=== PATIENT | male | born 1965 | race Caucasian/White ===

== ENCOUNTER 2021-08-15 08:39 | Outpatient (CLI) | payer OTHER, SELFPAY ==
--- NOTE | 2021-08-15 11:17 | W.ANESCHARGE ---
Anesthesia Charges Start Date/Time Anesthesia Start Date: 08/15/21 Anesthesia Start Time: 10:25 Stop Date/Time Anesthesia Stop Date: 08/15/21 Anesthesia Stop Time: 11:17 Summary Emergency: No
--- NOTE | 2021-08-15 11:24 | W.ANESCHARGE ---
Anesthesia Charges Start Date/Time Anesthesia Start Date: 08/15/21 Anesthesia Start Time: 10:25 Stop Date/Time Anesthesia Stop Date: 08/15/21 Anesthesia Stop Time: 11:17 Summary Emergency: No
--- NOTE | 2021-08-15 12:13 | W.ANESCHARGE ---
Anesthesia Charges Start Date/Time Anesthesia Start Date: 08/15/21 Anesthesia Start Time: 10:25 Stop Date/Time Anesthesia Stop Date: 08/15/21 Anesthesia Stop Time: 11:17 Summary Emergency: No
== END 2021-08-15 08:40 | disposition home or self-care (01) ==
PROVIDERS: PCP Physician Assistant Medical; Visit Provider Surgery
DX: Z12.11 Encounter for screening for malignant neoplasm of colon (principal); K63.5 Polyp of colon; K64.9 Unspecified hemorrhoids; Z86.010 Personal history of colon polyps; Z98.0 Intestinal bypass and anastomosis status; K22.89 Other specified disease of esophagus; K44.9 Diaphragmatic hernia without obstruction or gangrene; K22.2 Esophageal obstruction; R13.10 Dysphagia, unspecified
CPT/HCPCS: 00813; 43249; 45385; 88305; 88312

== ENCOUNTER 2022-06-13 09:25 | Outpatient (CLI) | payer OTHER, SELFPAY | END 2022-06-13 09:26 | disposition home or self-care (01) | PROVIDERS: PCP Physician Assistant Medical; Visit Provider Physician Assistant Medical | DX: Z00.00 Encounter for general adult medical examination without abnormal findings (principal); Z13.6 Encounter for screening for cardiovascular disorders; Z12.5 Encounter for screening for malignant neoplasm of prostate | CPT/HCPCS: 80053; 80061; 84153 ==

== ENCOUNTER 2023-03-18 10:40 | Outpatient (CLI) | payer OTHER, SELFPAY | END 2023-03-18 10:41 | disposition home or self-care (01) | PROVIDERS: PCP Physician Assistant Medical; Visit Provider Family Medicine | DX: K50.90 Crohn's disease, unspecified, without complications (principal); R10.9 Unspecified abdominal pain | CPT/HCPCS: 80053; 83690; 87086 ==

== ENCOUNTER 2023-03-26 10:36 | Outpatient (CLI) | payer OTHER, SELFPAY ==
--- NOTE | 2023-03-26 11:00 | CRLHL7_ITS ---
For Patients: As a result of the Century Cures Act, medical imaging exams and procedure reports are released immediately into your electronic medical record. You may view this report before your referring provider. If you have questions, please contact your health care provider. Indication: ABD PAIN, CROHNS Technique: CT Abdomen/Pelvis W/ 101CC IOSOVUE 370 Please note that all CT scans at this facility use dose modulation, iterative reconstruction, and/or weight-based dosing when appropriate to reduce radiation dose to as low as reasonably achievable. Comparison: 07/31/2021 Findings: Mild atelectasis/scarring is present within both lung bases. There is no pleural effusion. Mild hepatic steatosis. No intrahepatic duct dilation or focal mass. Gallbladder is absent. Similar spleen. Adrenal glands are normal. Simple cyst lower pole left kidney. Simple cysts right kidney also present, measuring up to 2.3 cm. Pancreas normal. Incidental splenules. No hiatal hernia. Unchanged appearance of the celiac artery. Atherosclerotic change. No enlarged lymph nodes. The bladder is incompletely distended. Postop changes of partial colectomy. No bowel obstruction or inflammatory change. The appendix is unremarkable. The terminal ileum is within normal limits. No fracture. Impression: Postop changes of partial colectomy. No bowel obstruction or inflammatory change. Normal appearance of the small bowel. No adenopathy or abscess. Resolution of previously noted postop seroma. Please note that all CT scans at this facility use dose modulation, iterative reconstruction, and/or weight-based dosing when appropriate to reduce radiation dose to as low as reasonably achievable. Dictated by Bhupendra Silver MD @ 03/27/2023 1:35:46 PM (Electronically Signed)
== END 2023-03-26 10:37 | disposition home or self-care (01) ==
LOC: CT 10:37
PROVIDERS: PCP Physician Assistant Medical; Visit Provider Family Medicine
DX: K50.90 Crohn's disease, unspecified, without complications (principal); R10.9 Unspecified abdominal pain
CPT/HCPCS: 74177; Q9967

== ENCOUNTER 2023-08-03 09:06 | Outpatient (CLI) | payer OTHER, SELFPAY | END 2023-08-03 09:07 | disposition home or self-care (01) | PROVIDERS: PCP Physician Assistant Medical; Visit Provider Physician Assistant Medical | DX: Z00.00 Encounter for general adult medical examination without abnormal findings (principal); Z13.6 Encounter for screening for cardiovascular disorders; Z13.29 Encounter for screening for other suspected endocrine disorder; Z12.5 Encounter for screening for malignant neoplasm of prostate | CPT/HCPCS: 80053; 80061; 84443; G0103 ==

== ENCOUNTER 2023-09-28 13:21 | Outpatient (CLI) | payer OTHER, SELFPAY | END 2023-09-28 13:22 | disposition home or self-care (01) | PROVIDERS: PCP Physician Assistant Medical; Visit Provider Physician Assistant | DX: M25.532 Pain in left wrist (principal); M25.572 Pain in left ankle and joints of left foot | CPT/HCPCS: 86618; 87468; 87469; 87484; 87798 ==

== ENCOUNTER 2024-01-19 12:47 | Outpatient (CLI) | payer OTHER, SELFPAY ==
--- NOTE | 2024-01-19 13:00 | CRLHL7_ITS ---
For Patients: As a result of the Cures Act, medical imaging exams and procedure reports are released immediately into your electronic medical record. You may view this report before your referring provider. If you have questions, please contact your health care provider. INDICATION: Tuberculosis quant positive. Crohn`s on biologic therapy TECHNIQUE: Chest radiograph 2 views COMPARISON: None FINDINGS: Mediastinum: The mediastinum is normal in appearance. The heart silhouette is normal in size and morphology. Lung: Both lungs are unremarkable in appearance. No sign of pleural effusion seen. No pneumothorax is identified. Bone and Soft tissue: Unremarkable for age. IMPRESSION: 1. No acute cardiopulmonary disease is seen. Dictated by: Des Chase MD @ 01/19/2024 13:45:16 (Electronically Signed)
== END 2024-01-19 12:48 | disposition home or self-care (01) ==
PROVIDERS: PCP Physician Assistant Medical; Visit Provider Internal Medicine Gastroenterology
DX: K50.00 Crohn's disease of small intestine without complications (principal)
CPT/HCPCS: 71046

== ENCOUNTER 2024-08-25 09:57 | Outpatient (CLI) | payer OTHER, SELFPAY | END 2024-08-25 09:58 | disposition home or self-care (01) | LOC: NFLDREF 08-29 17:42 | PROVIDERS: PCP Physician Assistant Medical; Referring Provider Physician Assistant Medical; Visit Provider Physician Assistant Medical | DX: K21.9 Gastro-esophageal reflux disease without esophagitis (principal); N52.9 Male erectile dysfunction, unspecified; Z13.6 Encounter for screening for cardiovascular disorders; Z12.5 Encounter for screening for malignant neoplasm of prostate; Z13.29 Encounter for screening for other suspected endocrine disorder; Z01.818 Encounter for other preprocedural examination | CPT/HCPCS: 80053; 80061; 84439; 84443; G0103 ==

== ENCOUNTER 2025-01-05 14:23 | Inpatient (IN) | payer OTHER, SELFPAY ==
[2025-01-05] VITALS (33 sets, daily range): BP systolic 138–172; BP diastolic 76–116; PULSE 51–65; RESP 6–28; TEMP 36.1–36.8; O2SAT 95–99; BMI 31.0; BMI 30.7; BMI 30.8
--- NOTE | 2025-01-05 14:24 | ED_ITS ---
HPI - General Adult General Date Seen: 01/05/25 Chief complaint: Altered Mental Status Stated complaint: confusion, hard time finishing a sentence Time Seen by Provider: 01/05/25 14:24 History of Present Illness HPI narrative: 59 yo M no for with a past medical history of Crohn's disease (apparently diagnosed 3 or 4 years ago) inflammatory arthritis (follows with Dr. 3rd valdes, rheumatology through [facility]). Per notes from October 2023 he had a good response after a treatment with prednisone. He had been on combination of have so less/infliximab. He then tried cetirizine. Per rheumatology notes he was going to be treated long-term with methotrexate 15 mg weekly, folic acid. Prednisone PRN for flares. He also has a history of anxiety, insomnia, GERD lymphocytic esophagitis. Current med list includes methotrexate 2.5 mg daily, omeprazole 40 mg daily, risankizumab, tadalafil, ambien, alprazolam. However, his says he is currently on prednisone and was started back on skyrizi ( took a dose on Thursday, 5 days ago)). History is obtained primarily from the patient's because the patient is confused. She says that after he took his dose of scanned resee on Thursday he did have some GI upset with vomiting, at least 3 episodes and possibly some more vomiting on Thursday. He also had some diarrhea but that is not unusual for him. Beginning on Thursday he seemed to be a little bit off with his mentation but nothing focal. 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 He did have to come home from work early on Thursday because he was having a flare up in his body aches and joint pain. Yesterday he seemed a little bit confused. He was well enough that his left him home alone today and went to work. When she came home he was still home. He apparently had a doctor's appointment today but for got to go. says he is pretty confident did not go because they have an katie that monitors the garage door and it did not open or close at all today.. Patient told his that the doctor did the normal things at the checkup but the patient cannot recall is doctor's name. His feels that he is much more confused than normal and is having a little bit trouble speaking and finishing his sentences. Patient does have a bifrontal headache. Sclerotic nauseous. He says vision is normal. No fever. notes he has had a cough for a few weeks. No new abdominal pain. No bloody diarrhea. We believe urination has been normal. Related Data Home Medications ?Medication ?Instructions ?Recorded ?Confirmed prednisone 10 mg tablet 20 mg PO DAILY 03/29/2412/18 risankizumab-rzaa 360 mg/2.4 mL 360 mg subcut 08/25/24 10/27/24 (150 mg/mL) subcut wearable injector (Bobby) methotrexate sodium 2.5 mg tablet 2.5 mg PO QWEEK 12/1701/05/25 folic acid 1 mg tablet 1 mg PO DAILY 01/05/2501/05 Previous Rx's ?Medication ?Instructions ?Recorded zolpidem 10 mg tablet 10 mg PO QHS PRN insomnia #9 0 tabs 08/02/24 omeprazole 40 mg capsule,delayed 40 mg PO BID #180 cap s 08/25/24 release alprazolam 0.5 mg tablet 0.5 mg PO QDAY PRN anxiety # 30 tabs 10/04/24 tadalafil 10 mg tablet 10 mg PO QDAY PRN sexual act ivity 11/03/24 #6 tabs Allergies Allergy/AdvReac Type Severity Reaction Status Date / Time ciprofloxacin Allergy Severe foggy Verified 01/05/25 15:13 metronidazole Allergy Severe foggy Verified 01/05/25 15:13 [facility] Medical History (Updated 01/05/25 @ 18:47 by Hernán Garza MD) Positive TB test ?R76.11 - Nonspecific reaction to tuberculin skin test without active tuberculosis (ICD-10) 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 ?R76.11 - Nonspecific reaction to tuberculin skin test without active tuberculosis (ICD-10) Polyp of gallbladder ?K82.4 - Cholesterolosis of gallbladder (ICD-10) Diverticulitis of sigmoid colon ?K57.32 - Diverticulitis of large intestine without perforation or abscess without bleeding (ICD-10) Chronic cough ?R05.3 - Chronic cough (ICD-10) Surgical History (Updated 10/27/24 @ 14:26 by Jad Gallego PA-C) History of insertion of dental endosseous implant ?Z97.2 - Presence of dental prosthetic device (complete) (partial) (ICD-10) Stricture of esophagus (05/04/15) ?K22.2 - Esophageal obstruction (ICD-10) History of flexible sigmoidoscopy ?Z98.890 - Other specified postprocedural states (ICD-10) History of endoscopy ?Z98.890 - Other specified postprocedural states (ICD-10) History of colonoscopy (05/04/15) ?Z98.890 - Other specified postprocedural states (ICD-10) History of colectomy ?Z90.49 - Acquired absence of other specified parts of digestive tract (ICD- 10) History of cholecystectomy ?Z90.49 - Acquired absence of other specified parts of digestive tract (ICD- 10) Family History (Updated 07/31/21 @ 09:52 by Amee Woo) Other Crohn's disease Diabetes High blood pressure Social History (Updated 08/03/23 @ 09:31 by Saloni Hernandez ~ [facility]) Narrative: Does not drink alcohol Does not use illicit drugs Former smoker What is your current living situation?: I presently have a place to live Problems where you live: no known problems In the past 12 months, utilities in danger of being shut off: no In past 12 months, lack of transportation kept you from medical appts, meetings, work, or getting things needed for daily living: no In the past 12 mos, have been you worried that your food would run out before you had money to buy more?: never true In the past 12 mos, the food you bought just didn't last and you didn't have money to buy more?: never true Smoking Status: Never smoker Do you use any of these nicotine containing products: None How often do you have a drink containing alcohol: monthly or less AUDIT-C Alcohol total score: 1 Non-prescribed substance use: denies use How often does anyone, including family, friends and others, physically hurt you : never How often does anyone, including family, friends and others, insult or talk down to you: never How often does anyone, including family, friends and others, threaten you with harm: never How often does anyone, including family, friends and others, scream or curse at you: never Exam Narrative: Exam Narrative: Constitutional: Appears well-developed and well-nourished. Alert. Somewhat slow with conversation but very polite. Cooperative. At times seems a little bit confused when getting instructions, for instance has trouble completing the heel-gonzalez test because he is confused, not because of obvious weakness or ataxia. HENT: Head: Atraumatic. No depressed skull fracture, Raccoon Eyes, Sanchez's sign, or hemotympanum. Face normal. TMs normal Nose: Nose normal. Mouth/Throat: Oral mucosa is clear and moist. no trismus. Pharynx normal. Tonsils symmetric. No tonsillar enlargement, erythema, or exudate. Eyes: Conjunctivae normal. EOM normal. Pupils equal, round, and reactive to light. No scleral icterus. Neck: Normal range of motion. Neck supple. No tracheal deviation present. Cardiovascular: Normal rate, regular rhythm. No gallop. No friction rub. No murmur heard. Symmetric radial artery pulses Pulmonary/Chest: Effort normal. No stridor. No respiratory distress. No wheezes. No rales. No rhonchi . No tenderness. Abdominal: Soft. Bowel sounds normal. No distension. No mass. No tenderness. No rebound. No guarding. Musculoskeletal: RUE: Normal range of motion. No tenderness. No deformity LUE: Normal range of motion. No tenderness. No deformity RLE: Normal range of motion. No edema. No tenderness. No deformity LLE: Normal range of motion. No edema. No tenderness. No deformity Neurological: Seems mildly confused and has some trouble following instructions. Very polite and cooperative. Not combative or agitated. Attention normal. Alert and oriented x3 but is a poor historian. When asking what day of the week it is he does give the right answer, but is not confident.. GCS 15. He is not able to recall events of today. He almost seemed to confabulate when his ask him about his doctor's appointment today. Speech somewhat slow but not obviously slurred. No facial droop. Cranial Nerves intact II-XII except I did not formally test gag or visual acu ity. Visual beverly are full to confrontation. Patient and told the nurses that he was having some haziness of the left lower visual field and right upper outer visual field. EOMI. Palate elevates symmetrically and tongue protrudes in the midline. Strength: 5/5 trapezius on the right and left 5/5 deltoid on the right and left 5/5 biceps on the right and left 5/5 triceps on the right and left 5/5 student accounts coordinator on the right and left 5/5 thumb opposition on the right and le ft 5/5 finger abduction on the right and le ft 5/5 hip flexors (L3) on the right and le ft 5/5 quadriceps (L4) on the right and lef t 5/5 tibialis anterior on the right and l eft 5/5 EHL (L5) on the right and left 5/5 gastrocnemius (S1) on the right and left 5/5 hamstring on the right and left Sensation intact to light touch in both upper extremities (C4-T1) Sensation intact to light touch in Both lower extremities (L4-S1). Finger to nose is normal. Has trouble cooperating with heel to gonzalez test because he just does not understand the instructions. NIH stroke scale- 3 Skin: Skin is warm and dry. No rash noted. No pallor. Normal capillary refill. Psychiatric: Normal mood. Mildly anxious. Very cooperative. is attentively is side. Const: Vital Signs, click to edit/add: Vital Signs - 24 hr 01/05/25 14:32 01/05/25 14:35 01/05/25 15:23 Temperature 98.3 F Pulse Rate 65 Pulse Rate [Pulse Oximeter] 59 L 59 L Respiratory Rate 16 16 Blood Pressure 162/83 H Blood Pressure [Le ft Upper Arm] 170/92 H 170/91 H Pulse Oximetry 98 96 98 Oxygen Delivery Me thod Room Air Room Air 01/05/25 15:24 01/05/25 15:30 01/05/25 15:35 Temperature Pulse Rate 63 58 L 56 L Pulse Rate [Pulse Oximeter] Respiratory Rate 14 10 L 28 H Blood Pressure 162/78 H Blood Pressure [Le ft Upper Arm] Pulse Oximetry 98 96 99 Oxygen Delivery Me thod 01/05/25 15:45 01/05/25 15:46 01/05/25 15:47 Temperature Pulse Rate 55 L 56 L 54 L Pulse Rate [Pulse Oximeter] Respiratory Rate 21 25 H 12 Blood Pressure 161/116 H 163/86 H Blood Pressure [Le ft Upper Arm] Pulse Oximetry 96 98 98 Oxygen Delivery Me thod 01/05/25 16:00 01/05/25 16:02 01/05/25 16:15 Temperature Pulse Rate Pulse Rate [Pulse Oximeter] Respiratory Rate 20 23 12 Blood Pressure 141/91 H Blood Pressure [Le ft Upper Arm] Pulse Oximetry Oxygen Delivery Me thod 01/05/25 16:25 01/05/25 16:26 01/05/25 17:33 Temperature Pulse Rate 59 L 56 L Pulse Rate [Pulse Oximeter] Respiratory Rate 28 H Blood Pressure 162/84 H 172/101 H Blood Pressure [Le ft Upper Arm] Pulse Oximetry 95 95 Oxygen Delivery Me thod 01/05/25 17:34 01/05/25 17:45 01/05/25 17:47 Temperature Pulse Rate 59 L 59 L 54 L Pulse Rate [Pulse Oximeter] Respiratory Rate 16 Blood Pressure 138/88 Blood Pressure [Le ft Upper Arm] Pulse Oximetry 97 96 96 Oxygen Delivery Me thod Room Air 01/05/25 18:00 01/05/25 18:02 01/05/25 18:15 Temperature Pulse Rate 52 L 51 L 53 L Pulse Rate [Pulse Oximeter] Respiratory Rate 18 17 6 L Blood Pressure 146/91 H Blood Pressure [Le ft Upper Arm] Pulse Oximetry 95 95 97 Oxygen Delivery Me thod 01/05/25 18:32 01/05/25 18:45 01/05/25 19:00 Temperature Pulse Rate 54 L 54 L 59 L Pulse Rate [Pulse Oximeter] Respiratory Rate 18 23 Blood Pressure Blood Pressure [Le ft Upper Arm] Pulse Oximetry 97 97 98 Oxygen Delivery Me thod 01/05/25 19:02 01/05/25 19:15 01/05/25 19:30 Temperature Pulse Rate 53 L 56 L Pulse Rate [Pulse Oximeter] Respiratory Rate 21 22 23 Blood Pressure 154/76 H Blood Pressure [Le ft Upper Arm] Pulse Oximetry 97 97 Oxygen Delivery Me thod Room Air 01/05/25 19:45 01/05/25 20:00 01/05/25 20:02 Temperature Pulse Rate 59 L Pulse Rate [Pulse Oximeter] Respiratory Rate 23 21 24 Blood Pressure 145/82 H Blood Pressure [Le ft Upper Arm] Pulse Oximetry Oxygen Delivery Me thod Room Air Course Course ED Course: Patient arrived in the ER by private car. After initial triage nurses came to me and asked if we should do a stroke team activation. I indicated that we should. This was immediately activated the patient was brought to ER room 8. He was sent expeditiously for noncontrast head CT after we got a fingerstick glucose that was not low . Blood pressure is 170/91. Will allow permissive hypertension for now. Consult with Dr. Ruby, stroke Neurology. She recommends CT imaging, follow-up CTA, and probably MRI. Recheck-phone call from radiology indicates CT findings of possible acute stroke. MRI recommended. Recheck-phone report from [facility] indicates that he does have several areas of stenosis on his angiogram with a 70% stenosis in the proximal left CA and a 70% stenosis of the clinoid level of left ICA and 50% right CA stenosis. Recheck-MRI back and does confirm multiple acute infarcts. Vital Signs Vital signs: Initial Vital Signs Pulse Rate 59 L 01/05/25 14:32 Pulse Rhythm Regular 01/05/25 14:32 Respiratory Rate 16 01/05/25 14:32 Respiratory Effort Normal, Spontaneous 01/05/25 14:32 Respiratory Depth Normal 01/05/25 14:32 Blood Pressure 170/92 H 01/05/25 14:32 Blood Pressure Mean 118 H 01/05/25 14:32 Pulse Oximetry 98 01/05/25 14:32 Oxygen Delivery Method Room Air 01/05/25 14:32 Vital Signs Pulse Rate 59 L 01/05/25 14:32 Respiratory Rate 16 01/05/25 14:32 Blood Pressure 170/92 H 01/05/25 14:32 Pulse Oximetry 98 01/05/25 14:32 Oxygen Delivery Method Room Air 01/05/25 14:32 Temperature 98.3 F 01/05/25 14:35 Pulse Rate 59 L 01/05/25 20:02 Respiratory Rate 24 01/05/25 20:02 Blood Pressure 145/82 H 01/05/25 20:02 Pulse Oximetry 97 01/05/25 19:15 Oxygen Delivery Method Room Air 01/05/25 20:02 Medications Administered Medications: Discontinued Medications Generic Name Dose Route Start Last Admin Trade Name Freq PRN Reason Stop Dose Admin Aspirin 325 mg 01/05/25 17:54 01/05/25 17:56 Aspirin Ec 325 Mg Tablet PO 01/05/25 17:55 325 mg ONCE ONE Administration Clopidogrel Bisulfate 300 mg 01/05/25 19:17 01/05/25 19:28 Clopidogrel 300 Mg Tablet PO 01/05/25 19:18 300 mg ONCE ONE Administration Sodium Chloride 1,000 mls @ 1,000 mls/hr 01/05/25 15:00 01/05/25 20:28 0.9 % Sodium Chloride 1000 Ml IV 01/05/25 15:59 Infused .Q1H STEPH Infusion Ketorolac Tromethamine 15 mg 01/05/25 14:47 01/05/25 16:07 Ketorolac 15 Mg/Ml Inj IVP 01/05/25 14:48 15 mg ONCE ONE Administration Medical Decision Making MDM Narrative Medical decision making narrative: 59-year-old gentleman on immunomodulatory medications for Crohn's disease and inflammatory arthritis including prednisone and skyrizi. He presents to the ER today with acute confusion, difficulty with speaking, and neurologic symptoms. It sounds like symptoms have been going on at least since yesterday but possibly for the past 3-4 days. It sounds like symptoms were initially fairly mild and almost unnoticeable but today become more severe. Differential here includes stroke, hypoglycemia, hyponatremia, electrolyte disturbance, hypercapnia, hepatic encephalopathy, sepsis, encephalitis, among others. The initial noncontrast head CT is fortunately negative for any sign of intracr anial hemorrhage but does show a subtle area in the left parietal lobe suspicious for an acute infarct but not definitive. MRI is recommended. CT angiograms of his head neck show 70% carotid stenosis on the left and 50% on the right but no definite large vessel occlusion requiring immediate. Intravascular intervention. Laboratory workup shows normal blood gas. Normal urinalysis. Normal sodium and electrolytes. Kidney function blood sugar normal. Venous lactic acid is normal. LFTs are mildly abnormal with an ALT of 52 and an AST of 36 but ammonia, bilirubin are normal. He does not have a fever, leukocytosis. CRP is normal. No clear evidence for sepsis. In consultation with the stroke neurology team from [facility], CT, CTA, and MRI of the patient's brain are obtained. Imaging does confirm multiple acute ischemic infarcts. Most prominent these are in the left parietal and occipital lobe watershed territories. Additional scattered infarcts in the head of the left caudate nucleus, left frontal and parietal white matter. Discussed these multiple infarcts with Stroke Neurology, Dr. Ceron. She would recommend dual anti-platelet therapy and admission here in [place]. She also recommends consultation with vascular surgery to see if they would recommend any surgical intervention for the carotid stenosis. Discussed with vascular surgery, Dr. Nolasco We reviewed the patient's presenting symptoms and carotid stenoses. He advises against transfer to [place] and would not perform any emergent surgical intervention for this patient's carotid but he will set the patient up for an outpatient clinic follow-up. For now he recommends dual anti-platelet therapy and aggressive statin therapy and medical management. Discussed with our hospitalist, Dr. Griffith who graciously agrees to admit here to [place]. Discussed the plan of care with the patient and his and they are in agreement. They are understandably shocked by the did diagnosis of strokes. They question whether not could be related to his immunomodulator medication. Discussed that at this point I am not able to answer that question And will defer to Stroke Neurology.. Lab Data Labs: Lab Results 01/05/25 01/05/25 01/05/25 Range/Units 15:18 15:20 15:43 INR 0.95 (0.91-1.10) VBG pH 7.413 (7.32-7.43) VBG pCO2 41 (40-50) mmHG VBG pO2 62.4 H (25-47) mmHG VBG HCO3 26 (21-28) mmol/L Sodium 138 (135-149) mmol/L Potassium 4.3 (3.6-5.1) mmol/L Chloride 105 (96-114) mmol/L Carbon Dioxide 25 (20-32) mmol/L Anion Gap 8 (7-15) mEq/L BUN 13 (7-30) mg/dL Creatinine 0.9 (0.5-1.5) mg/dL Estimated Creat Clear 88.38 Estimated GFR 98 ml/min Glucose 98 (60-115) mg/dL Lactate 1.8 (0.5-1.9) mmol/L Calcium 9.3 (8.4-10.6) mg/dL Magnesium 1.6 (1.5-2.6) mg/dL Total Bilirubin 1.0 (0.1-1.5) mg/dL AST 36 H (12-35) U/L ALT 52 H (4-50) U/L Alkaline Phosphatase 60 (40-150) U/L Ammonia 16.7 (13.1-30.0) umol/L Troponin I < 0.01 (0.01-0.04) ng/mL C-Reactive Protein 0.6 (0.5-1.0) mg/dL Total Protein 8.0 (6.0-8.3) g/dL Albumin 4.4 (3.3-5.0) g/dL Urine Color Yellow (Yellow) Urine Appearance Clear (Clear) Urine pH 7.0 (5.0-8.5) Ur Specific [place] 1.010 (1.000-1.030) Urine Protein Negative (Negative) Urine Glucose (UA) Negative (Negative) Urine Ketones Negative (Negative) Urine Blood Negative (Negative) Urine Nitrite Negative (Negative) Urine Bilirubin Negative (Negative) Urine Urobilinogen 0.2 (0.2-1.0) Ur Leukocyte Esterase Negative (Negative) Urine RBC 0-2 (0-2) Urine WBC 0-2 (0-5) Ur Squamous Epith Cells None (None-Few) Urine Bacteria None (None) SARS-CoV-2 (PCR) Negative SARS-CoV-2 (Negative) Influenza Type A (PCR) Negative PCR FLU A (Negative) Influenza Type B (PCR) Negative PCR FLU B (Negative) RSV (PCR) Negative PCR RSV (Negative) Imaging Data CT scan - head: Attestation: I have reviewed the pertinent imaging results. My impression: Phone call from Radiology to Dr. Washington to inform them of the abnormal results. Radiologist's impression: PRESSION: IMPRESSIONThere is a 1.2 cm region of hypoattenuation in the left parietal cortex that could represent early ischemic changes. Further evaluation with MRI is recommended. CTA head and neck: Attestation: I have reviewed the pertinent imaging results. My impression: Verbal report from Radiology, Dr. Almaguer at 3:36 p.m.. The patient has multiple areas of stenosis. In the left carotid there are 2 areas. He has a 70% stenosis at the left ICA. He also has a secondary of stenosis at the level of the clinoid affecting the left carotid. He also has an area of 50% stenosis in the right carotid artery. MRI Brain: Attestation: I have reviewed the pertinent imaging results. Radiologist's impression: Impression: 1. Multiple acute ischemic infarcts most prominent in the left parietal and occipital lobe watershed territories with additional scattered infarcts in the left head of the caudate nucleus, left frontal and parietal white matter. 2. No intracranial hemorrhage. No midline shift. Mild chronic small-vessel ischemic changes. 3. 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 4. No pathologic enhancement. ECG Data Attestation: I personally reviewed and interpreted this ECG as follows: Interpretation: Normal sinus rhythm Rate 61 VA interval 130 Normal QRS axis No ST segment elevation or depression. QTC 414, QTC 416 Discharge Plan Discharge Clinical Impression: Stroke, Carotid stenosis Patient Disposition: Admitted As Observation Condition: Stable Procedures ABG Interpretation ABG Results: 01/05/25 15:18 VBG pH 7.413 VBG pCO2 41 VBG pO2 62.4 H VBG HCO3 26
--- NOTE | 2025-01-05 14:32 | CRLHL7_ITS ---
For Patients: As a result of the Century Cures Act, medical imaging exams and procedure reports are released immediately into your electronic medical record. You may view this report before your referring provider. If you have questions, please contact your health care provider. INDICATION: Altered mental status. Stroke code. TECHNIQUE: CT of the head without contrast. Coronal and sagittal reformats. Bone and soft tissue algorithms. COMPARISON: No prior studies available for comparison at this institution. FINDINGS: No acute intracranial hemorrhage or extra-axial collection. There is a 1.2 cm region of hypoattenuation in the left parietal cortex (series 2, image 42). No mass effect or midline shift. Mild generalized parenchymal volume loss. Mild regions of decreased attenuation within the periventricular and subcortical white matter of both cerebral hemispheres most likely reflect chronic microvascular ischemic disease and age related change in this patient. Vascular calcifications within the carotid siphons. Orbital contents are normal. No calvarial fractures. No lytic or sclerotic osseous lesions within the calvarium or skull base. Scalp and other imaged soft tissue structures are normal. Mastoid air cells are clear. Rightward deviation of nasal septum. Mild mucosal thickening in the maxillary sinuses. Findings called to covering Dr. Glasgow at 3:02 pm IMPRESSION: IMPRESSIONThere is a 1.2 cm region of hypoattenuation in the left parietal cortex that could represent early ischemic changes. Further evaluation with MRI is recommended. Please note that all CT scans at this facility use dose modulation, iterative reconstruction, and/or weight-based dosing when appropriate to reduce radiation dose to as low as reasonably achievable. Dictated by Bhupendra Schmitt MD @ 01/05/2025 3:03:26 PM (Electronically Signed)
--- NOTE | 2025-01-05 14:47 | CT_ITS ---
Patient: ALEX MULLEN Facility:?[facility] Patient ID:?[id number] Site Patient ID:?[id number]. Site :?1965 Study:?CT-Neck Angio Angio CODE STROKE W/ 95CC ISOVUE 370-01/05/2025 3:21:06 PM Ordering Physician:Perry Jim Final Report: DATE: 01/05/2025 CLINICAL HISTORY: Patient with altered mental status and headache. TECHNIQUE: Standard helical CT image acquisition through the head and neck was performed after intravenous contrast bolus enhancement. 2D and 3D MIP images for post- processing were performed and interpreted on an independent workstation and 3D images were permanently archived. COMPARISON: None. FINDINGS: The origins of the great vessels from the aortic arch are patent. The origin of the right vertebral artery is patent. The origin of the left vertebral artery is patent. The common carotid arteries are patent There is plaque without stenosis at the origin of the right internal carotid artery by NASCET criteria. There is a critical (greater than 95%) stenosis at the origin of the left internal carotid artery by NASCET criteria. This is caused by a large amount of non-calcified plaque with a hairline residual lumen. The rest of the cervical segments of the internal carotid arteries are patent up to their intracranial segments. The intracranial segments of the internal carotid arteries demonstrate moderate to severe narrowing on the left. The left vertebral artery is dominant. The cervical segments of the vertebral arteries are patent. The intracranial segments of the vertebral arteries are patent. The middle cerebral arteries are normal without aneurysm or proximal occlusion identified. The anterior cerebral arteries are normal without aneurysm or proximal occlusion identified. The anterior communicating artery is well visualized and appears normal. The basilar artery is normal without aneurysm or occlusion. The posterior cerebral arteries are normal without aneurysm or proximal occlusion. There is normal opacification of major intracranial venous structures. The visualized lung apices are unremarkable The thyroid gland is unremarkable. The soft tissues of the neck are unremarkable. There are degenerative changes in the cervical spine. IMPRESSION: 1. No proximal intracranial large vessel occlusion. 2. Critical (greater than 95%) stenosis at the origin of the left internal carotid artery by NASCET criteria. This is caused by a large amount of non- calcified plaque with a hairline residual lumen. 3. Intracranial atherosclerosis with moderate to severe narrowing in the left supraclinoid internal carotid artery. Please note that all CT scans at this facility use dose modulation, iterative reconstruction, and/or weight-based dosing when appropriate to reduce radiation dose to as low as reasonably achievable. Dictated by Tavares Catalan MD @ 01/05/2025 10:07:01 PM Signed by:?Tavares Catalan MD @01/05/2025 10:07:01 PM (Electronic Signature)
--- NOTE | 2025-01-05 14:47 | CRLHL7_ITS ---
For Patients: As a result of the Cures Act, medical imaging exams and procedure reports are released immediately into your electronic medical record. You may view this report before your referring provider. If you have questions, please contact your health care provider. Indication: Altered mental status, cough Technique: Chest 2 views Comparison: Chest x-ray 01/19/2024 Findings/Impression: Cardiovascular and mediastinum: Heart size and vasculature are normal in caliber and appearance. Mediastinum is within normal limits. Lungs and pleural spaces: Lungs are clear. No sign of infiltrate or mass. No sign of pleural effusion. No pneumothorax. Bones and soft tissues: No significant findings. Dictated by Juan Ron MD @ 01/05/2025 5:18:11 PM (Electronically Signed)
--- NOTE | 2025-01-05 14:47 | CT_ITS ---
Patient: ALEX MULLEN Facility:?[facility] Patient ID:?[id number] Site Patient ID:?[id number]. Site :?1965 Study:?CT-Head Angio CODE STROKE W/ 95CC ISOVUE 370-01/05/2025 3:20:37 PM Ordering Physician:Perry Jim Final Report: DATE: 01/05/2025 CLINICAL HISTORY: Patient with altered mental status and headache. TECHNIQUE: Standard helical CT image acquisition through the head and neck was performed after intravenous contrast bolus enhancement. 2D and 3D MIP images for post- processing were performed and interpreted on an independent workstation and 3D images were permanently archived. COMPARISON: None. FINDINGS: The origins of the great vessels from the aortic arch are patent. The origin of the right vertebral artery is patent. The origin of the left vertebral artery is patent. The common carotid arteries are patent There is plaque without stenosis at the origin of the right internal carotid artery by NASCET criteria. There is a critical (greater than 95%) stenosis at the origin of the left internal carotid artery by NASCET criteria. This is caused by a large amount of non-calcified plaque with a hairline residual lumen. The rest of the cervical segments of the internal carotid arteries are patent up to their intracranial segments. The intracranial segments of the internal carotid arteries demonstrate moderate to severe narrowing on the left. The left vertebral artery is dominant. The cervical segments of the vertebral arteries are patent. The intracranial segments of the vertebral arteries are patent. The middle cerebral arteries are normal without aneurysm or proximal occlusion identified. The anterior cerebral arteries are normal without aneurysm or proximal occlusion identified. The anterior communicating artery is well visualized and appears normal. The basilar artery is normal without aneurysm or occlusion. The posterior cerebral arteries are normal without aneurysm or proximal occlusion. There is normal opacification of major intracranial venous structures. The visualized lung apices are unremarkable The thyroid gland is unremarkable. The soft tissues of the neck are unremarkable. There are degenerative changes in the cervical spine. IMPRESSION: 1. No proximal intracranial large vessel occlusion. 2. Critical (greater than 95%) stenosis at the origin of the left internal carotid artery by NASCET criteria. This is caused by a large amount of non- calcified plaque with a hairline residual lumen. 3. Intracranial atherosclerosis with moderate to severe narrowing in the left supraclinoid internal carotid artery. Please note that all CT scans at this facility use dose modulation, iterative reconstruction, and/or weight-based dosing when appropriate to reduce radiation dose to as low as reasonably achievable. Dictated by Tavares Catalan MD @ 01/05/2025 10:07:35 PM Signed by:?Tavares Catalan MD @01/05/2025 10:07:35 PM (Electronic Signature)
--- NOTE | 2025-01-05 15:07 | CRLHL7_ITS ---
For Patients: As a result of the Century Cures Act, medical imaging exams and procedure reports are released immediately into your electronic medical record. You may view this report before your referring provider. If you have questions, please contact your health care provider. Indication: confusion, possible stroke on CT Technique: Noncontrast sagittal T1, axial FLAIR, T2 turbo spine echo, and diffusion weighted images. Supplemental post contrast T1 weighted axial and coronal sequences are provided after administration of 20 cc Dotarem gadolinium-based IV contrast. Comparison: CT head 01/05/2025 Findings: There are several scattered foci of diffusion restriction and T2 prolongation in the left frontal and parietal lobe watershed territories including the left postcentral gyrus, superior parietal lobule, bilateral frontal and parietal centrum semiovale and meneses radiata, head of left caudate nucleus, and left parietal occipital cortex watershed territories. No midline shift. No hydrocephalus. Multiple scattered foci of T2 prolongation in the supratentorial matter are nonspecific but likely represent chronic small-vessel ischemic changes. The pituitary gland, optic chiasm, and cerebellar tonsils are unremarkable. 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 No pathologic enhancement. Impression: 1. Multiple acute ischemic infarcts most prominent in the left parietal and occipital lobe watershed territories with additional scattered infarcts in the left head of the caudate nucleus, left frontal and parietal white matter. 2. No intracranial hemorrhage. No midline shift. Mild chronic small-vessel ischemic changes. 3. 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 4. No pathologic enhancement. Dictated by Bhupendra Schmitt MD @ 01/05/2025 5:25:01 PM (Electronically Signed)
[2025-01-05 15:20] LABS: HCO3 VBG 26 mmol/L (21-28); Lactate* 1.8 mmol/L (0.5-1.9); PCO2 VBG 41 mmHG (40-50); PO2 VBG 62.4 mmHG (25-47); pH VBG 7.413 (7.32-7.43)
[2025-01-05 15:36] LABS: Albumin* 4.4 g/dL (3.3-5.0); Chloride* 105 mmol/L (96-114); Potassium* 4.3 mmol/L (3.6-5.1); Sodium* 138 mmol/L (135-149)
[2025-01-05 15:38] LABS: INR 0.95 (0.91-1.10); Prothrombin Time 13.5 Seconds
[2025-01-05 15:39] LABS: Alanine Aminotransferase* 52 U/L (4-50); Alkaline Phosphatase* 60 U/L (40-150); Ammonia* 16.7 umol/L (13.1-30.0); Aspartate Amino Transferase* 36 U/L (12-35); Bilirubin Total* 1.0 mg/dL (0.1-1.5); Blood Urea Nitrogen* 13 mg/dL (7-30); Calcium* 9.3 mg/dL (8.4-10.6); Carbon Dioxide* 25 mmol/L (20-32); Creatinine* 0.9 mg/dL (0.5-1.5); Est. Creatinine Clearance* 88.38; Estimated Glomerular Filt Rate 98 ml/min; Glucose* 98 mg/dL (60-115); Total Protein* 8.0 g/dL (6.0-8.3)
--- OUTSIDE RECORDS SUMMARY | 2025-01-05 15:44 | XMS_ITS | CCD ---
Author Name Interface, [id number] lity Address [address] [place] [address] [facility] On[facility] Address [facility] [address] [address] Reason for Visit Social History Date Name Value 10/15/2024 Sex Male
--- OUTSIDE RECORDS SUMMARY | 2025-01-05 15:44 | XMS_ITS | CCD ---
Author Name Interface, Q2Gxtvrvd lity Address [address] [place] [address] [facility] Oncology Address [facility] [address] [address] Reason for Visit Social History Date Name Value 10/15/2024 Sex Male
--- OUTSIDE RECORDS SUMMARY | 2025-01-05 15:44 | XMS_ITS | CCD ---
Author Name Interface, [id number] lity Address [address] [place] [address] [facility] Oncology Address [facility] [address] [address] Reason for Visit Social History Date Name Value 10/15/2024 Sex Male
--- OUTSIDE RECORDS SUMMARY | 2025-01-05 15:44 | XMS_ITS | CCD ---
Author Name Interface, A1Gabcrtf lity Address [address] [place] [address] [facility] On[facility] Address [facility] [address] [address] Reason for Visit Social History Date Name Value 10/15/2024 Sex Male
--- OUTSIDE RECORDS SUMMARY | 2025-01-05 15:44 | XMS_ITS | CCD ---
Author Name Interface, [id number] lity Address [address] [place] [address] [facility] Oncology Address [facility] [address] [address] Reason for Visit Social History Date Name Value 10/15/2024 Sex Male
--- OUTSIDE RECORDS SUMMARY | 2025-01-05 15:44 | XMS_ITS | CCD ---
Author Name Interface, M6Cmyyrft lity Address [address] [place] [address] [facility] Oncology Address [facility]0 [address] [address] Reason for Visit Social History Date Name Value 10/15/2024 Sex Male
--- OUTSIDE RECORDS SUMMARY | 2025-01-05 15:44 | XMS_ITS | CCD ---
Author Name Interface, X8Vjaiopc lity Address [address] [place] [address] [facility] Oncology Address [facility] [address] [address] Reason for Visit Social History Date Name Value 10/15/2024 Sex Male
--- OUTSIDE RECORDS SUMMARY | 2025-01-05 15:44 | XMS_ITS | CCD ---
Author Name Interface, B7Jnayrqw lity Address [address] [place] [address] [facility] On[facility] Address [facility] [address] [address] Reason for Visit Social History Date Name Value 10/15/2024 Sex Male
--- OUTSIDE RECORDS SUMMARY | 2025-01-05 15:45 | XMS_ITS | CCD ---
Author Name Interface, X7Dxrbxyj lity Address [address] [place] [address] [facility] Oncology Address [facility] [address] [address] Reason for Visit Social History Date Name Value 10/15/2024 Sex Male
--- OUTSIDE RECORDS SUMMARY | 2025-01-05 15:45 | XMS_ITS | CCD ---
Author Name Interface, [id number] lity Address [address] [place] [address] [facility] Oncology Address [facility] [address] [address] Reason for Visit Social History Date Name Value 10/15/2024 Sex Male
--- OUTSIDE RECORDS SUMMARY | 2025-01-05 15:45 | XMS_ITS | CCD ---
Author Name Interface, L8Zyfnraj lity Address [address] [place] [address] [facility] Oncology Address [facility] [address] [address] Reason for Visit Social History Date Name Value 10/15/2024 Sex Male
--- OUTSIDE RECORDS SUMMARY | 2025-01-05 15:45 | XMS_ITS | CCD ---
Author Name Interface, B9Doivfje lity Address [address] [place] [address] [facility] On[facility] Address [facility] [address] [address] Reason for Visit Social History Date Name Value 10/15/2024 Sex Male
--- OUTSIDE RECORDS SUMMARY | 2025-01-05 15:45 | XMS_ITS | CCD ---
Author Name Interface, S7Hocskvy lity Address [address] [place] [address] [facility] On[facility] Address [facility] [address] [address] Reason for Visit Social History Date Name Value 10/15/2024 Sex Male
--- OUTSIDE RECORDS SUMMARY | 2025-01-05 15:45 | XMS_ITS | CCD ---
Author Name Interface, O7Anberhe lity Address [address] [place] [address] [facility] Oncology Address [facility] [address] [address] Reason for Visit Social History Date Name Value 10/15/2024 Sex Male
--- OUTSIDE RECORDS SUMMARY | 2025-01-05 15:45 | XMS_ITS | CCD ---
Author Name Interface, C7Ybswzqq lity Address [address] [place] [address] [facility] Oncology Address [facility] [address] [address] Reason for Visit Social History Date Name Value 10/15/2024 Sex Male
--- OUTSIDE RECORDS SUMMARY | 2025-01-05 15:45 | XMS_ITS | CCD ---
Author Name Interface, Y6Ithcdch lity Address [address] [place] [address] [facility] Oncology Address [facility] [address] [address] Reason for Visit Social History Date Name Value 10/15/2024 Sex Male
--- OUTSIDE RECORDS SUMMARY | 2025-01-05 15:45 | XMS_ITS | CCD ---
Author Name Interface, C5Kyzgrww lity Address [address] [place] [address] [facility] Oncology Address [facility] [address] [address] Reason for Visit Social History Date Name Value 10/15/2024 Sex Male
--- OUTSIDE RECORDS SUMMARY | 2025-01-05 15:45 | XMS_ITS | CCD ---
Author Name Interface, Q5Rdtypgg lity Address [address] [place] [address] [facility] Oncology Address [facility] [address] [address] Reason for Visit Social History Date Name Value 10/15/2024 Sex Male
--- OUTSIDE RECORDS SUMMARY | 2025-01-05 15:45 | XMS_ITS | CCD ---
Author Name Interface, W5Wophfky lity Address [address] [place] [address] [facility] Oncology Address [facility]0 [address] [address] Reason for Visit Social History Date Name Value 10/15/2024 Sex Male
--- OUTSIDE RECORDS SUMMARY | 2025-01-05 15:45 | XMS_ITS | CCD ---
Author Name Interface, W8Feeevjf lity Address [address] [place] [address] [facility] Oncology Address [facility] [address] [address] Reason for Visit Social History Date Name Value 10/15/2024 Sex Male
--- OUTSIDE RECORDS SUMMARY | 2025-01-05 15:46 | XMS_ITS | CCD ---
Author Name Interface, G3Mdigbsp lity Address [address] [place] [address] [facility] Oncology Address [facility] [address] [address] Reason for Visit Social History Date Name Value 10/15/2024 Sex Male
--- OUTSIDE RECORDS SUMMARY | 2025-01-05 15:46 | XMS_ITS | CCD ---
Author Name Interface, U7Hqfsqke lity Address [address] [place] [address] [facility] Oncology Address [facility] [address] [address] Reason for Visit Social History Date Name Value 10/15/2024 Sex Male
--- OUTSIDE RECORDS SUMMARY | 2025-01-05 15:46 | XMS_ITS | CCD ---
Author Name Interface, S8Wiegnxf lity Address [address] [place] [address] [facility] Oncology Address [facility] [address] [address] Reason for Visit Social History Date Name Value 10/15/2024 Sex Male
--- OUTSIDE RECORDS SUMMARY | 2025-01-05 15:46 | XMS_ITS | CCD ---
Author Name Interface, I9Egvxcax lity Address [address] [place] [address] [facility] Oncology Address [facility] [address] [address] Reason for Visit Social History Date Name Value 10/15/2024 Sex Male
--- OUTSIDE RECORDS SUMMARY | 2025-01-05 15:46 | XMS_ITS | CCD ---
Author Name Interface, G2Kccvute lity Address [address] [place] [address] [facility] Oncology Address [facility]0 [address] [address] Reason for Visit Social History Date Name Value 10/15/2024 Sex Male
--- OUTSIDE RECORDS SUMMARY | 2025-01-05 15:46 | XMS_ITS | CCD ---
Author Name Interface, N5Suddcfl lity Address [address] [place] [address] [facility] Oncology Address [facility] [address] [address] Reason for Visit Social History Date Name Value 10/15/2024 Sex Male
--- OUTSIDE RECORDS SUMMARY | 2025-01-05 15:47 | XMS_ITS | CCD ---
Author Name Interface, F9Ueorzjw lity Address [address] [place] [address] [facility] Oncology Address [facility]0 [address] [address] Reason for Visit Social History Date Name Value 10/15/2024 Sex Male
--- OUTSIDE RECORDS SUMMARY | 2025-01-05 15:47 | XMS_ITS | CCD ---
Author Name Interface, L5Dpugklw lity Address [address] [place] [address] [facility] Oncology Address [facility]0 [address] [address] Reason for Visit Social History Date Name Value 10/15/2024 Sex Male
--- OUTSIDE RECORDS SUMMARY | 2025-01-05 15:47 | XMS_ITS | CCD ---
Author Name Interface, E8Obmdnex lity Address [address] [place] [address] [facility] Oncology Address [facility]0 [address] [address] Reason for Visit Social History Date Name Value 10/15/2024 Sex Male
--- OUTSIDE RECORDS SUMMARY | 2025-01-05 15:47 | XMS_ITS | CCD ---
Author Name Interface, C1Magrdcu lity Address [address] [place] [address] [facility] Oncology Address [facility]0 [address] [address] Reason for Visit Social History Date Name Value 10/15/2024 Sex Male
--- OUTSIDE RECORDS SUMMARY | 2025-01-05 15:47 | XMS_ITS | CCD ---
Author Name Interface, U6Dwrvxlq lity Address [address] [place] [address] [facility] Oncology Address [facility] [address] [address] Reason for Visit Social History Date Name Value 10/15/2024 Sex Male
--- OUTSIDE RECORDS SUMMARY | 2025-01-05 15:47 | XMS_ITS | CCD ---
Author Name Interface, G2Pprurfb lity Address [address] [place] [address] [facility] Oncology Address [facility]0 [address] [address] Reason for Visit Social History Date Name Value 10/15/2024 Sex Male
--- OUTSIDE RECORDS SUMMARY | 2025-01-05 15:47 | XMS_ITS | CCD ---
Author Name Interface, K5Qkhwulf lity Address [address] [place] [address] [facility] Oncology Address [facility]0 [address] [address] Reason for Visit Social History Date Name Value 10/15/2024 Sex Male
--- OUTSIDE RECORDS SUMMARY | 2025-01-05 15:47 | XMS_ITS | CCD ---
Author Name Interface, M2Bppdqnd lity Address [address] [place] [address] [facility] Oncology Address [facility] [address] Reason for Visit Social History Date Name Value 10/15/2024 Sex Male
--- OUTSIDE RECORDS SUMMARY | 2025-01-05 15:47 | XMS_ITS | CCD ---
Author Name Interface, W2Nizojgy lity Address [address] [place] [address] [facility] Oncology Address [facility] [address] [address] Reason for Visit Social History Date Name Value 10/15/2024 Sex Male
--- OUTSIDE RECORDS SUMMARY | 2025-01-05 15:47 | XMS_ITS | CCD ---
Author Name Interface, C0Cilzmdl lity Address [address] [place] [address] [facility] Oncology Address [facility] [address] [address] Reason for Visit Social History Date Name Value 10/15/2024 Sex Male
--- OUTSIDE RECORDS SUMMARY | 2025-01-05 15:47 | XMS_ITS | CCD ---
Author Name Interface, P9Xsftnwl lity Address [address] [place] [address] [facility] Oncology Address [facility] [address] [address] Reason for Visit Social History Date Name Value 10/15/2024 Sex Male
--- OUTSIDE RECORDS SUMMARY | 2025-01-05 15:47 | XMS_ITS | CCD ---
Author Name Interface, B4Fpsztvi lity Address [address] [place] [address] [facility] Oncology Address [facility]0 [address] [address] Reason for Visit Social History Date Name Value 10/15/2024 Sex Male
--- OUTSIDE RECORDS SUMMARY | 2025-01-05 15:47 | XMS_ITS | CCD ---
Author Name Interface, I8Kqjydrk lity Address [address] [place] [address] [facility] Oncology Address [facility] [address] [address] Reason for Visit Social History Date Name Value 10/15/2024 Sex Male
--- OUTSIDE RECORDS SUMMARY | 2025-01-05 15:47 | XMS_ITS | CCD ---
Author Name Interface, K8Gfiduya lity Address [address] [place] [address] [facility] Oncology Address [facility] [address] [address] Reason for Visit Social History Date Name Value 10/15/2024 Sex Male
[2025-01-05 15:48] LABS: Anion Gap 8 mEq/L (7-15)
--- OUTSIDE RECORDS SUMMARY | 2025-01-05 15:48 | XMS_ITS | CCD ---
Author Name Interface, L5Gxyrovz lity Address [address] [place] [address] [facility] Oncology Address [facility]0 [address] [address] Reason for Visit Social History Date Name Value 10/15/2024 Sex Male
--- OUTSIDE RECORDS SUMMARY | 2025-01-05 15:48 | XMS_ITS | CCD ---
Author Name Interface, R7Zxpvwcs lity Address [address] [place] [address] [facility] Oncology Address [facility] [address] [address] Reason for Visit Social History Date Name Value 10/15/2024 Sex Male
--- OUTSIDE RECORDS SUMMARY | 2025-01-05 15:48 | XMS_ITS | CCD ---
Author Name Interface, [id number] lity Address [address] [place] [address] [facility] Oncology Address [facility] [address] [address] Reason for Visit Social History Date Name Value 10/15/2024 Sex Male
--- OUTSIDE RECORDS SUMMARY | 2025-01-05 15:48 | XMS_ITS | CCD ---
Author Name Interface, [id number] lity Address [address] [place] [address] [facility] Oncology Address [facility] [address] [address] Reason for Visit Social History Date Name Value 10/15/2024 Sex Male
--- OUTSIDE RECORDS SUMMARY | 2025-01-05 15:48 | XMS_ITS | CCD ---
Author Name Interface, [id number] lity Address [address] [place] [address] [facility] On[facility] Address [facility] [address] [address] Reason for Visit Social History Date Name Value 10/15/2024 Sex Male
--- OUTSIDE RECORDS SUMMARY | 2025-01-05 15:48 | XMS_ITS | CCD ---
Author Name Interface, [id number] lity Address [address] [place] [address] [facility] Oncology Address [facility] [address] [address] Reason for Visit Social History Date Name Value 10/15/2024 Sex Male
--- OUTSIDE RECORDS SUMMARY | 2025-01-05 15:48 | XMS_ITS | CCD ---
Author Name Interface, [id number] lity Address [address] [place] [address] [facility] Oncology Address [facility] [address] [address] Reason for Visit Social History Date Name Value 10/15/2024 Sex Male
--- OUTSIDE RECORDS SUMMARY | 2025-01-05 15:49 | XMS_ITS | CCD ---
Author Name Interface, [id number] lity Address [address] [place] [address] [facility] Oncology Address [facility] [address] [address] Reason for Visit Social History Date Name Value 10/15/2024 Sex Male
--- OUTSIDE RECORDS SUMMARY | 2025-01-05 15:49 | XMS_ITS | CCD ---
Author Name Interface, [id number] lity Address [address] [place] [address] [facility] Oncology Address [facility] [address] [address] Reason for Visit Social History Date Name Value 10/15/2024 Sex Male
--- OUTSIDE RECORDS SUMMARY | 2025-01-05 15:49 | XMS_ITS | CCD ---
Author Name Interface, [id number] lity Address [address] [place] [address] [facility] Oncology Address [facility] [address] [address] Reason for Visit Social History Date Name Value 10/15/2024 Sex Male
--- OUTSIDE RECORDS SUMMARY | 2025-01-05 15:49 | XMS_ITS | CCD ---
Author Name Interface, [id number] lity Address [address] [place] [address] [facility] Oncology Address [facility] [address] [address] Reason for Visit Social History Date Name Value 10/15/2024 Sex Male
--- OUTSIDE RECORDS SUMMARY | 2025-01-05 15:49 | XMS_ITS | CCD ---
Author Name Interface, [id number] lity Address [address] [place] [address] [facility] Oncology Address [facility] [address] [address] Reason for Visit Social History Date Name Value 10/15/2024 Sex Male
--- OUTSIDE RECORDS SUMMARY | 2025-01-05 15:49 | XMS_ITS | CCD ---
Author Name Interface, B2Kvgiffc lity Address [address] [place] [address] [facility] On[facility] Address [facility] [address] [address] Reason for Visit Social History Date Name Value 10/15/2024 Sex Male
--- OUTSIDE RECORDS SUMMARY | 2025-01-05 15:49 | XMS_ITS | CCD ---
Author Name Interface, [id number] lity Address [address] [place] [address] [facility] Oncology Address [facility] [address] [address] Reason for Visit Social History Date Name Value 10/15/2024 Sex Male
--- OUTSIDE RECORDS SUMMARY | 2025-01-05 15:49 | XMS_ITS | CCD ---
Author Name Interface, [id number] lity Address [address] [place] [address] [facility] On[facility] Address [facility] [address] [address] Reason for Visit Social History Date Name Value 10/15/2024 Sex Male
--- OUTSIDE RECORDS SUMMARY | 2025-01-05 15:49 | XMS_ITS | CCD ---
Author Name Interface, [id number] lity Address [address] [place] [address] [facility] Oncology Address [facility] [address] [address] Reason for Visit Social History Date Name Value 10/15/2024 Sex Male
--- OUTSIDE RECORDS SUMMARY | 2025-01-05 15:49 | XMS_ITS | CCD ---
Author Name Interface, Z4Hywajri lity Address [address] [place] [address] [facility] Oncology Address [facility] [address] [address] Reason for Visit Social History Date Name Value 10/15/2024 Sex Male
--- OUTSIDE RECORDS SUMMARY | 2025-01-05 15:50 | XMS_ITS | CCD ---
Author Name Interface, [id number] lity Address [address] [place] [address] [facility] Oncology Address [facility] [address] [address] Reason for Visit Social History Date Name Value 10/15/2024 Sex Male
--- OUTSIDE RECORDS SUMMARY | 2025-01-05 15:50 | XMS_ITS | CCD ---
Author Name Interface, M2Qzjsuzt lity Address [address] [place] [address] [facility] Oncology Address [facility] [address] [address] Reason for Visit Social History Date Name Value 10/15/2024 Sex Male
--- OUTSIDE RECORDS SUMMARY | 2025-01-05 15:50 | XMS_ITS | CCD ---
Author Name Interface, [id number] lity Address [address] [place] [address] [facility] Oncology Address [facility] [address] [address] Reason for Visit Social History Date Name Value 10/15/2024 Sex Male
--- OUTSIDE RECORDS SUMMARY | 2025-01-05 15:50 | XMS_ITS | CCD ---
Author Name Interface, A1Hiynjga lity Address [address] [place] [address] [facility] Oncology Address [facility] [address] [address] Reason for Visit Social History Date Name Value 10/15/2024 Sex Male
--- OUTSIDE RECORDS SUMMARY | 2025-01-05 15:50 | XMS_ITS | CCD ---
Author Name Interface, [id number] lity Address [address] [place] [address] [facility] Oncology Address [facility] [address] [address] Reason for Visit Social History Date Name Value 10/15/2024 Sex Male
--- OUTSIDE RECORDS SUMMARY | 2025-01-05 15:50 | XMS_ITS | CCD ---
Author Name Interface, D3Yrqquju lity Address [address] [place] [address] [facility] On[facility] Address [facility] [address] [address] Reason for Visit Social History Date Name Value 10/15/2024 Sex Male
--- OUTSIDE RECORDS SUMMARY | 2025-01-05 15:50 | XMS_ITS | CCD ---
Author Name Interface, [id number] lity Address [address] [place] [address] [facility] Oncology Address [facility]0 [address] [address] Reason for Visit Social History Date Name Value 10/15/2024 Sex Male
--- OUTSIDE RECORDS SUMMARY | 2025-01-05 15:50 | XMS_ITS | CCD ---
Author Name Interface, G7Uggqutp lity Address [address] [place] [address] [facility] Oncology Address [facility]0 [address] [address] Reason for Visit Social History Date Name Value 10/15/2024 Sex Male
--- OUTSIDE RECORDS SUMMARY | 2025-01-05 15:50 | XMS_ITS | CCD ---
Author Name Interface, E6Kgoyfyr lity Address [address] [place] [address] [facility] Oncology Address [facility]0 [address] [address] Reason for Visit Social History Date Name Value 10/15/2024 Sex Male
--- OUTSIDE RECORDS SUMMARY | 2025-01-05 15:50 | XMS_ITS | CCD ---
Author Name Interface, F4Iuedqnx lity Address [address] [place] [address] [facility] Oncology Address [facility]0 [address] [address] Reason for Visit Social History Date Name Value 10/15/2024 Sex Male
--- OUTSIDE RECORDS SUMMARY | 2025-01-05 15:50 | XMS_ITS | CCD ---
Author Name Interface, [id number] lity Address [address] [place] [address] [facility] Oncology Address [facility]0 [address] [address] Reason for Visit Social History Date Name Value 10/15/2024 Sex Male
[2025-01-05 15:51] LABS: Appearance Urine Clear (Clear)
--- OUTSIDE RECORDS SUMMARY | 2025-01-05 15:51 | XMS_ITS | CCD ---
Author Name Interface, U2Qwbloiv lity Address [address] [place] [address] [facility] Oncology Address [facility]0 [address] [address] Reason for Visit Social History Date Name Value 10/15/2024 Sex Male
--- OUTSIDE RECORDS SUMMARY | 2025-01-05 15:51 | XMS_ITS | CCD ---
Author Name Interface, G1Jyyvooy lity Address [address] [place] [address] [facility] Oncology Address [facility]0 [address] [address] Reason for Visit Social History Date Name Value 10/15/2024 Sex Male
--- OUTSIDE RECORDS SUMMARY | 2025-01-05 15:51 | XMS_ITS | CCD ---
Author Name Interface, H5Pphvmap lity Address [address] [place] [address] [facility] Oncology Address [facility]0 [address] [address] Reason for Visit Social History Date Name Value 10/15/2024 Sex Male
--- OUTSIDE RECORDS SUMMARY | 2025-01-05 15:51 | XMS_ITS | CCD ---
Author Name Interface, [id number] lity Address [address] [place] [address] [facility] Oncology Address [facility]0 [address] [address] Reason for Visit Social History Date Name Value 10/15/2024 Sex Male
[2025-01-05 16:01] LABS: PCR FLU A Negative PCR FLU A (Negative); PCR FLU B Negative PCR FLU B (Negative); PCR RSV Negative PCR RSV (Negative); SARS PCR* Negative SARS-CoV-2 (Negative)
[2025-01-05] MEDS: ASPIRIN EC 325 MG TABLET PO (17:56)
[2025-01-05] MEDS: CLOPIDOGREL 300 MG TABLET PO (19:28)
--- NOTE | 2025-01-05 20:51 | PM.IMHP1 ---
Assessment and Plan Assessment and plan (1) Stroke: Problem comment: - presented with confusion on 01/04-01/05 - MRI 01/05: Multiple acute ischemic infarcts most prominent in the left parietal and occipital lobe watershed territories with additional scattered infarcts in the left head of the caudate nucleus, left frontal and parietal white matter - followed by Stroke Neuro, was outside of window for thrombolytics - Plavix, ASA, statin, lipids/A1C, TTE, permissive HTN, therapy evaluations Status: Acute (2) Carotid stenosis: Problem comment: - >70% stenosis of L proximal ICA and paraophthalmic ICA, 50% stenosis of mid R ICA - ER physician reviewed with Dr. Nolasco of Vascular Surgery, recommends DAPT, statin, outpatient f/u with Vascular surgery Status: Acute (3) Crohn disease: Problem comment: - on prn Prednisone (not currently as of 01/05/25), Skyrizi managed by GI Status: Acute (4) Insomnia: Problem comment: - typically on 10mg Ambien Status: Inactive Plan - per above - Adelita updated bedside, questions answered Hospitalist- H&P: HPI History of Present Illness Date Seen: 01/05/25 Chief complaint: confusion, hard time finishing a sentence Narrative: Miguel Kee is a 59 year old male with a history of Crohn's disease and immunosuppression who presented to the emergency room today at the behest of his for acute confusion. He typically works evening shifts, had come home from work early after a shift Thursday of this week as he was having generalized achiness and was not feeling well. Over the past 1-2 days, has noted more confusion. This morning she came home from work, and he was sitting at the table, thought he had just gotten home from a doctor's appointment (but hadn't left the house). He was unable to answer which doctor he had seen, and seemed to be having some word-finding difficulties, so she brought him to the emergency room. In addition to the achiness, he has had an intermittent headache. ER course and findings: - labs reassuring with the exception of mild AST/ALT elevation - MRI reveals multiple acute ischemic infarcts, most prominent in the left parietal and occipital lobe watershed territories; also noted are scattered infarcts in the left caudate nucleus, left frontal and parietal white matter - CTA neck concerning for > 70% stenosis at left proximal internal carotid and paraophthalmic left ICA, 50% stenosis at mid right ICA - Given 300mg Plavix and 325mg ASA - seen by Stroke Neuro who recommends admission, labs, therapy evaluations. Vascular surgery did not feel that transfer warranted, recommends DAPT, statin, and outpatient f/u Patient is admitted for a new CVA and workup per above. Upon arrival to the floor, he feels less confused. Still has a headache, no other concerns for hospitalist. History is updated below, PCP is Jad Gallego. 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 - Nonspecific reaction to tuberculin skin test without active tuberculosis (ICD-10) 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 ?R76.11 - Nonspecific reaction to tuberculin skin test without active tuberculosis (ICD-10) Polyp of gallbladder ?K82.4 - Cholesterolosis of gallbladder (ICD-10) Diverticulitis of sigmoid colon ?K57.32 - Diverticulitis of large intestine without perforation or abscess without bleeding (ICD-10) Chronic cough ?R05.3 - Chronic cough (ICD-10) Surgical History (Updated 10/27/24 @ 14:26 by Jad Gallego PA-C) History of insertion of dental endosseous implant ?Z97.2 - Presence of dental prosthetic device (complete) (partial) (ICD-10) Stricture of esophagus (05/04/15) ?K22.2 - Esophageal obstruction (ICD-10) History of flexible sigmoidoscopy ?Z98.890 - Other specified postprocedural states (ICD-10) History of endoscopy ?Z98.890 - Other specified postprocedural states (ICD-10) History of colonoscopy (03/18/16) ?Z98.890 - Other specified postprocedural states (ICD-10) History of colectomy ?Z90.49 - Acquired absence of other specified parts of digestive tract (ICD-10) History of cholecystectomy ?Z90.49 - Acquired absence of other specified parts of digestive tract (ICD-10) Family History (Updated 07/31/21 @ 09:52 by Amee Woo) Other Crohn's disease Diabetes High blood pressure Social History (Updated 01/05/25 @ 21:47 by Clementina Griffith MD) Narrative: Works at [employer], hourly shift (nonclinical). Adelita would be MDM if needed. Full Code Does not drink alcohol Does not use illicit drugs Former smoker What is your current living situation?: I presently have a place to live Problems where you live: no known problems Problems where you live details: n/a In the past 12 months, utilities in danger of being shut off: no In past 12 months, lack of transportation kept you from medical appts, meetings, work, or getting things needed for daily living: no In the past 12 mos, have been you worried that your food would run out before you had money to buy more?: never true In the past 12 mos, the food you bought just didn't last and you didn't have money to buy more?: never true Smoking Status: Former smoker Do you use any of these nicotine containing products: None How often do you have a drink containing alcohol: 2-4 times a month How many standard drinks containing alcohol do you have on a typical day: 1 or 2 AUDIT-C Alcohol total score: 2 Non-prescribed substance use: denies use How often does anyone, including family, friends and others, physically hurt you: never How often does anyone, including family, friends and others, insult or talk down to you: never How often does anyone, including family, friends and others, threaten you with harm: never How often does anyone, including family, friends and others, scream or curse at you: never Meds Home Medications and Allergies Home Medications ?Medication ?Instructions ?Recorded ?Confirmed ?Type prednisone 10 mg tablet 20 mg PO DAILY 03/29/24 01/05/25 History zolpidem 10 mg tablet 10 mg PO QHS PRN insomnia #90 tabs 08/02/24 10/27/24 Rx omeprazole 40 mg capsule,delayed 40 mg PO BID #180 caps 08/25/24 01/05/25 Rx release risankizumab-rzaa 360 mg/2.4 mL 360 mg subcut 08/25/24 10/27/24 History (150 mg/mL) subcut wearable injector (Bobby) alprazolam 0.5 mg tablet 0.5 mg PO QDAY PRN anxiety #30 tabs 10/04/24 10/27/24 Rx tadalafil 10 mg tablet 10 mg PO QDAY PRN sexual activity 11/03/24 Rx #6 tabs methotrexate sodium 2.5 mg tablet 2.5 mg PO QWEEK 01/02/25 01/05/25 History folic acid 1 mg tablet 1 mg PO DAILY 01/05/25 01/05/25 History Home Medication Comments: Prednisone bursts prn, not currently on this per Adelita Allergies Allergy/AdvReac Type Severity Reaction Status Date / Time ciprofloxacin Allergy Severe foggy Verified 01/05/25 15:13 metronidazole Allergy Severe foggy Verified 01/05/25 15:13 Exam Narrative: Exam Narrative: GEN: Alert and oriented, appears tired but nontoxic HEENT: EOMIs bilaterally, no scleral icterus CV: RRR, soft systolic murmur without concerning features or radiation R: LCTA bilaterally Ab: Soft, tolerates palpation Ext: wwp, no concerning edema Skin: No concerning skin lesions or rashes on exposed skin Neuro: No facial droop, no resting tremor. Gait without hesitation, not wide based. No pronator drift, no dysmetria on finger to nose exam, normal rapid alternating movements Psych: Appropriate Const: Vital Signs, click to edit/add: Vital Signs - 24 hr 01/05/25 14:32 01/05/25 14:35 01/05/25 15:23 Temperature 98.3 F Pulse Rate 65 Pulse Rate [Pulse Oximeter] 59 L 59 L Respiratory Rate 16 16 Blood Pressure 162/83 H Blood Pressure [Le ft Arm] Blood Pressure [Le ft Upper Arm] 170/92 H 170/91 H Pulse Oximetry 98 96 98 Oxygen Delivery Me thod Room Air Room Air 01/05/25 15:24 01/05/25 15:30 01/05/25 15:35 Temperature Pulse Rate 63 58 L 56 L Pulse Rate [Pulse Oximeter] Respiratory Rate 14 10 L 28 H Blood Pressure 162/78 H Blood Pressure [Le ft Arm] Blood Pressure [Le ft Upper Arm] Pulse Oximetry 98 96 99 Oxygen Delivery Me thod 01/05/25 15:45 01/05/25 15:46 01/05/25 15:47 Temperature Pulse Rate 55 L 56 L 54 L Pulse Rate [Pulse Oximeter] Respiratory Rate 21 25 H 12 Blood Pressure 161/116 H 163/86 H Blood Pressure [Le ft Arm] Blood Pressure [Le ft Upper Arm] Pulse Oximetry 96 98 98 Oxygen Delivery Me thod 01/05/25 16:00 01/05/25 16:02 01/05/25 16:15 Temperature Pulse Rate Pulse Rate [Pulse Oximeter] Respiratory Rate 20 23 12 Blood Pressure 141/91 H Blood Pressure [Le ft Arm] Blood Pressure [Le ft Upper Arm] Pulse Oximetry Oxygen Delivery Me thod 01/05/25 16:25 01/05/25 16:26 01/05/25 17:33 Temperature Pulse Rate 59 L 56 L Pulse Rate [Pulse Oximeter] Respiratory Rate 28 H Blood Pressure 162/84 H 172/101 H Blood Pressure [Le ft Arm] Blood Pressure [Le ft Upper Arm] Pulse Oximetry 95 95 Oxygen Delivery Me thod 01/05/25 17:34 01/05/25 17:45 01/05/25 17:47 Temperature Pulse Rate 59 L 59 L 54 L Pulse Rate [Pulse Oximeter] Respiratory Rate 16 Blood Pressure 138/88 Blood Pressure [Le ft Arm] Blood Pressure [Le ft Upper Arm] Pulse Oximetry 97 96 96 Oxygen Delivery Me thod Room Air 01/05/25 18:00 01/05/25 18:02 01/05/25 18:15 Temperature Pulse Rate 52 L 51 L 53 L Pulse Rate [Pulse Oximeter] Respiratory Rate 18 17 6 L Blood Pressure 146/91 H Blood Pressure [Le ft Arm] Blood Pressure [Le ft Upper Arm] Pulse Oximetry 95 95 97 Oxygen Delivery Me thod 01/05/25 18:32 01/05/25 18:45 01/05/25 19:00 Temperature Pulse Rate 54 L 54 L 59 L Pulse Rate [Pulse Oximeter] Respiratory Rate 18 23 Blood Pressure Blood Pressure [Le ft Arm] Blood Pressure [Le ft Upper Arm] Pulse Oximetry 97 97 98 Oxygen Delivery Me thod 01/05/25 19:02 01/05/25 19:15 01/05/25 19:30 Temperature Pulse Rate 53 L 56 L Pulse Rate [Pulse Oximeter] Respiratory Rate 21 22 23 Blood Pressure 154/76 H Blood Pressure [Le ft Arm] Blood Pressure [Le ft Upper Arm] Pulse Oximetry 97 97 Oxygen Delivery Me thod Room Air 01/05/25 19:45 01/05/25 20:00 01/05/25 20:02 Temperature Pulse Rate 59 L Pulse Rate [Pulse Oximeter] Respiratory Rate 23 21 24 Blood Pressure 145/82 H Blood Pressure [Le ft Arm] Blood Pressure [Le ft Upper Arm] Pulse Oximetry Oxygen Delivery Me thod Room Air 01/05/25 20:32 Temperature 97.0 F L Pulse Rate Pulse Rate [Pulse Oximeter] 55 L Respiratory Rate 18 Blood Pressure Blood Pressure [Le ft Arm] 146/77 H Blood Pressure [Le ft Upper Arm] Pulse Oximetry 97 Oxygen Delivery In thod Room Air Hospitalist - H&P: Result Labs Labs: BMP 01/05/25 15:18 Sodium 138 Potassium 4.3 Chloride 105 Carbon Dioxide 25 BUN 13 Creatinine 0.9 Glucose 98 Calcium 9.3 Cardiac Enzymes 01/05/25 Range/Units 15:18 Troponin I < 0.01 (0.01-0.04) ng/mL Liver Function 01/05/25 Range/Units 15:18 Total Bilirubin 1.0 (0.1-1.5) mg/dL AST 36 H (12-35) U/L ALT 52 H (4-50) U/L Alkaline Phosphatase 60 (40-150) U/L Albumin 4.4 (3.3-5.0) g/dL Urine 01/05/25 Range/Units 15:43 Urine Color Yellow (Yellow) Urine Appearance Clear (Clear) Urine pH 7.0 (5.0-8.5) Ur Specific Freeman 1.010 (1.000-1.030) Urine Protein Negative (Negative) Urine Glucose (UA) Negative (Negative)
[2025-01-05] MEDS: ZOLPIDEM 5 MG TABLET PO (22:32)
[2025-01-06 02:40] VITALS: BMI 30.2
[2025-01-06 02:41] VITALS: BP 150/85; PULSE 52; RESP 17; TEMP 36.1; O2SAT 95
[2025-01-06 06:35] LABS: Hematocrit* 44.0 % (37.0-53.0); Hemoglobin* 15.2 gm/dL (13.5-17.5); Immature Granulocytes Abs Auto 0.02 K/uL (0.00-0.30); Immature Granulocytes Pct Auto 0.2 %; Lymphocytes Absolute Auto 2.18 K/uL (0.90-2.90); Mean Corpuscular HGB Conc 35 gm/dL (32-36); Mean Corpuscular Hemoglobin 28 pg (26-34); Mean Corpuscular Volume 80 fL (80-100); RDW Coefficient of Variation % 12.3 % (11.5-15.5); Red Blood Count* 5.47 m/uL (4.30-5.90); White Blood Count* 8.24 K/uL (4.50-11.00)
[2025-01-06 06:37] LABS: Slide Review Reflex No
[2025-01-06 06:42] LABS: Albumin* 4.1 g/dL (3.3-5.0); Chloride* 106 mmol/L (96-114); Sodium* 137 mmol/L (135-149)
[2025-01-06 06:43] LABS: Potassium* 3.8 mmol/L (3.6-5.1)
[2025-01-06 06:45] LABS: Alanine Aminotransferase* 43 U/L (4-50); Alkaline Phosphatase* 60 U/L (40-150); Anion Gap 6 mEq/L (7-15); Aspartate Amino Transferase* 33 U/L (12-35); Bilirubin Total* 1.2 mg/dL (0.1-1.5); Blood Urea Nitrogen* 15 mg/dL (7-30); Carbon Dioxide* 25 mmol/L (20-32); Cholesterol* 181 mg/dL (90-199); Creatinine* 0.9 mg/dL (0.5-1.5); Est. Creatinine Clearance* 88.38; Estimated Glomerular Filt Rate 98 ml/min; Total Protein* 7.2 g/dL (6.0-8.3); Triglycerides* 210 mg/dL (40-149)
[2025-01-06 06:46] LABS: Calcium* 8.9 mg/dL (8.4-10.6); Glucose* 88 mg/dL (60-115); HDL Cholesterol* 28 mg/dL (>=40)
--- NOTE | 2025-01-06 06:59 | PC.NURSE ---
Shift note ([id number]): Patient admitted from ED?at?2019.?Arrived in?wheelchair?and was accompanied by his Lisseth. Pt?pleasant?and alert.?Difficulty finding words at times.?Ambulating with stand by?assist.?Two?loose stools during?night?which is baseline for pt?due to Crohn?s.?Reported having a mild headache on admission but has denied pain since that time.?
[2025-01-06 07:00] VITALS: BP 137/79; PULSE 53; PULSE 57; RESP 20; TEMP 36.6; O2SAT 97
[2025-01-06] MEDS: OMEPRAZOLE 20 MG CAPSULE DR 40 MG PO (10:06)
[2025-01-06] MEDS: ASPIRIN 81 MG TABLET EC PO (10:06)
[2025-01-06] MEDS: FOLIC ACID 1 MG TABLET PO (10:06)
[2025-01-06] MEDS: SODIUM CHLORIDE 0.9 % (FLUSH) 10 ML SYRINGE 5 ML IVF (10:07)
[2025-01-06] MEDS: CLOPIDOGREL 75 MG TABLET PO (10:07)
--- NOTE | 2025-01-06 10:31 | P.DS_ITS ---
DS: Providers Provider Date Seen: 01/06/25 Date of admission: 01/05/25 20:59 Primary care physician: Jad Gallego PA-C Admitting Clinician: Clementina Griffith MD Consults: 01/05/25 21:52 Consult to Physical Therapy [CONS] Routine Comment: Reason(s) for PT Consult:: Evaluate and Treat Any Restrictions?:: No Restrictions Consult to Solar Maintenance Technician [CONS] Routine Comment: Reason for Consult:: Discharge Planning Needs Consult to Speech Therapy [CONS] Routine Comment: Reason(s) for Speech Consult:: Speaking Difficulty 01/05/25 21:53 Consult to Occupational Therapy [CONS] Routine Comment: Reason(s) for OT Consult:: Evaluate and Treat Any Restrictions?:: No Restrictions Attending Physician on discharge: VARUN Houston [facility] Date [facility] Discharge: 01/06/25 DS: Diagnosis Discharge Diagnosis (1) Stroke: Status: Acute Problem details: - presented with confusion on 01/04-01/05 - MRI 01/05: Multiple acute ischemic infarcts most prominent in the left parietal and occipital lobe watershed territories with additional scattered infarcts in the left head of the caudate nucleus, left frontal and parietal white matter - followed by Stroke Neuro, was outside of window for thrombolytics - Plavix, ASA, statin, lipids/A1C, TTE, permissive HTN, therapy evaluations (2) Carotid stenosis: Status: Acute Problem details: - >70% stenosis of L proximal ICA and paraophthalmic ICA, 50% stenosis of mid R ICA - ER physician reviewed with Dr. 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 DS: Summary Hospital Course Hospital Course: Course of care and details as noted above. 59-year-old male admitted with acute left CVA and critical ICA stenosis. Echocardiogram completed prior to discharge, final results pending. Therapies assessed. OT and speech recommending ongoing outpatient therapies. Neuro stroke recommendations as below * Would ideally pursue dual antiplatelet therapy pending carotid revascularization * Aspirin 81mg daily (if okay from GI standpoint given Crohn's disease) - according to open evidence, aspirin is considered reasonable when indicated for cardiovascular recurrent cerebrovascular prevention in patients with IBD, there is no clear evidence that low-dose aspirin exacerbates Crohn's disease activity. Patient has been started on aspirin and will have outpatient follow-up with GI for ongoing management * Plavix 75mg daily * Rosuvastatin 40mg for plaque prevention and stabilization. * No driving given visual field cut, would need clearance per OT and/or ophthalmology - as outpatient follow-up with OT * BP goal < 130/80 - outpatient follow-up with PCP * Will need MARTHA referral to VASCULAR SURGERY for left carotid stenosis, symptomatic - appointment has been made for 01/09/2025 * Follow up with [facility] in approximately 6-8 weeks. Please call the clinic scheduling department at [phone] to schedule your appointment. [facility] scheduling department said they will reach out to him to schedule this Status at Discharge Functional status at discharge: independent ambulation Overall status at discharge: patient is not back to baseline Time Spent with Patient Time attestation: Total time spent providing and/or coordinating discharge services: Exam Narrative: Exam Narrative: PHYSICAL EXAM General: Pleasant, conversant, NAD Cardiovascular: RRR Pulmonary: No dyspnea Neurological: Alert, answering questions appropriately, no focal findings currently Skin: Warm, dry. Const: Vital Signs, click to edit/add: Vital Signs - 24 hr 01/05/25 14:32 01/05/25 14:35 01/05/25 15:23 Temperature 98.3 F Pulse Rate 65 Pulse Rate [Pulse Oximeter] 59 L 59 L Respiratory Rate 16 16 Blood Pressure 162/83 H Blood Pressure [Le ft Arm] Blood Pressure [Le ft Upper Arm] 170/92 H 170/91 H Pulse Oximetry 98 96 98 Oxygen Delivery Me thod Room Air Room Air 01/05/25 15:24 01/05/25 15:30 01/05/25 15:35 Temperature Pulse Rate 63 58 L 56 L Pulse Rate [Pulse Oximeter] Respiratory Rate 14 10 L 28 H Blood Pressure 162/78 H Blood Pressure [Le ft Arm] Blood Pressure [Le ft Upper Arm] Pulse Oximetry 98 96 99 Oxygen Delivery Me thod 01/05/25 15:45 01/05/25 15:46 01/05/25 15:47 Temperature Pulse Rate 55 L 56 L 54 L Pulse Rate [Pulse Oximeter] Respiratory Rate 21 25 H 12 Blood Pressure 161/116 H 163/86 H Blood Pressure [Le ft Arm] Blood Pressure [Le ft Upper Arm] Pulse Oximetry 96 98 98 Oxygen Delivery Me thod 01/05/25 16:00 01/05/25 16:02 01/05/25 16:15 Temperature Pulse Rate Pulse Rate [Pulse Oximeter] Respiratory Rate 20 23 12 Blood Pressure 141/91 H Blood Pressure [Le ft Arm] Blood Pressure [Le ft Upper Arm] Pulse Oximetry Oxygen Delivery Me thod 01/05/25 16:25 01/05/25 16:26 01/05/25 17:33 Temperature Pulse Rate 59 L 56 L Pulse Rate [Pulse Oximeter] Respiratory Rate 28 H Blood Pressure 162/84 H 172/101 H Blood Pressure [Le ft Arm] Blood Pressure [Le ft Upper Arm] Pulse Oximetry 95 95 Oxygen Delivery Me thod 01/05/25 17:34 01/05/25 17:45 01/05/25 17:47 Temperature Pulse Rate 59 L 59 L 54 L Pulse Rate [Pulse Oximeter] Respiratory Rate 16 Blood Pressure 138/88 Blood Pressure [Le ft Arm] Blood Pressure [Le ft Upper Arm] Pulse Oximetry 97 96 96 Oxygen Delivery Me thod Room Air 01/05/25 18:00 01/05/25 18:02 01/05/25 18:15 Temperature Pulse Rate 52 L 51 L 53 L Pulse Rate [Pulse Oximeter] Respiratory Rate 18 17 6 L Blood Pressure 146/91 H Blood Pressure [Le ft Arm] Blood Pressure [Le ft Upper Arm] Pulse Oximetry 95 95 97 Oxygen Delivery Me thod 01/05/25 18:32 01/05/25 18:45 01/05/25 19:00 Temperature Pulse Rate 54 L 54 L 59 L Pulse Rate [Pulse Oximeter] Respiratory Rate 18 23 Blood Pressure Blood Pressure [Le ft Arm] Blood Pressure [Le ft Upper Arm] Pulse Oximetry 97 97 98 Oxygen Delivery Me thod 01/05/25 19:02 01/05/25 19:15 01/05/25 19:30 Temperature Pulse Rate 53 L 56 L Pulse Rate [Pulse Oximeter] Respiratory Rate 21 22 23 Blood Pressure 154/76 H Blood Pressure [Le ft Arm] Blood Pressure [Le ft Upper Arm] Pulse Oximetry 97 97 Oxygen Delivery Me thod Room Air 01/05/25 19:45 01/05/25 20:00 01/05/25 20:02 Temperature Pulse Rate 59 L Pulse Rate [Pulse Oximeter] Respiratory Rate 23 21 24 Blood Pressure 145/82 H Blood Pressure [Le ft Arm] Blood Pressure [Le ft Upper Arm] Pulse Oximetry Oxygen Delivery Me thod Room Air 01/05/25 20:32 01/05/25 20:32 01/05/25 22:20 Temperature 97.0 F L 97.0 F L Pulse Rate Pulse Rate [Pulse Oximeter] 55 L 58 L Respiratory Rate 18 18 16 Blood Pressure Blood Pressure [Le ft Arm] 146/77 H 151/96 H Blood Pressure [Le ft Upper Arm] Pulse Oximetry 97 97 95 Oxygen Delivery Me thod Room Air Room Air Room Air 01/05/25 22:20 01/05/25 23:45 01/06/25 02:41 Temperature 97.0 F L Pulse Rate 57 L Pulse Rate [Pulse Oximeter] 52 L Respiratory Rate 16 17 Blood Pressure Blood Pressure [Le ft Arm] 150/85 H Blood Pressure [Le ft Upper Arm] Pulse Oximetry 95 95 Oxygen Delivery Ks thod Room Air Room Air DS: Data Data Completed and Pending Labs on day of discharge: Labs from last 24 hours 01/06/25 01/05/25 01/05/25 05:31 15:43 15:20 WBC 8.24 RBC 5.47 Hgb 15.2 Hct 44.0 MCV 80 MCH 28 MCHC 35 RDW Coeff of José 12.3 Plt Count 191 Neut % (Auto) 57.5 Lymph % (Auto) 26.5 Smyth % (Auto) 8.7 Eos % (Auto) 6.6 Baso % (Auto) 0.5 Neut # (Auto) 4.74 Lymph # (Auto) 2.18 Smyth # (Auto) 0.70 Eos # (Auto) 0.54 H Baso # (Auto) 0.04 Abs Immat Gran (auto) 0.02 Imm/Tot Granulo (auto) 0.2 INR VBG pH VBG pCO2 VBG pO2 VBG HCO3 Sodium 137 Potassium 3.8 Chloride 106 Carbon Dioxide 25 Anion Gap 6 L BUN 15 Creatinine 0.9 Estimated Creat Clear 88.38 Estimated GFR 98 Glucose 88 Hemoglobin A1c 5.0 Lactate Calcium 8.9 Magnesium Total Bilirubin 1.2 AST 33 ALT 43 Alkaline Phosphatase 60 Ammonia Troponin I C-Reactive Protein Total Protein 7.2 Albumin 4.1 Triglycerides 210 H Cholesterol 181 LDL Cholesterol, Calc 111 H HDL Cholesterol 28 L Urine Color Yellow Urine Appearance Clear Urine pH 7.0 Ur Specific [place] 1.010 Urine Protein Negative Urine Glucose (UA) Negative Urine Ketones Negative Urine Blood Negative Urine Nitrite Negative Urine Bilirubin Negative Urine Urobilinogen 0.2 Ur Leukocyte Esterase Negative Urine RBC 0-2 Urine WBC 0-2 Ur Squamous Epith Cells None Urine Bacteria None SARS-CoV-2 (PCR) Negative SARS-CoV-2 Influenza Type A (PCR) Negative PCR FLU A Influenza Type B (PCR) Negative PCR FLU B RSV (PCR) Negative PCR RSV 01/05/25 15:18 WBC RBC Hgb Hct MCV MCH MCHC RDW Coeff of José Plt Count Neut % (Auto) Lymph % (Auto) Smyth % (Auto) Eos % (Auto) Baso % (Auto) Neut # (Auto) Lymph # (Auto) Smyth # (Auto) Eos # (Auto) Baso # (Auto) Abs Immat Gran (auto) Imm/Tot Granulo (auto) INR 0.95 VBG pH 7.413 VBG pCO2 41 VBG pO2 62.4 H VBG HCO3 26 Sodium 138 Potassium 4.3 Chloride 105 Carbon Dioxide 25 Anion Gap 8 BUN 13 Creatinine 0.9 Estimated Creat Clear 88.38 Estimated GFR 98 Glucose 98 Hemoglobin A1c Lactate 1.8 Calcium 9.3 Magnesium Total Bilirubin 1.0 AST 36 H ALT 52 H Alkaline Phosphatase 60 Ammonia 16.7 Troponin I < 0.01 C-Reactive Protein Total Protein 8.0 Albumin 4.4 Triglycerides Cholesterol LDL Cholesterol, Calc HDL Cholesterol Urine Color Urine Appearance Urine pH Ur Specific [place] Urine Protein Urine Glucose (UA) Urine Ketones Urine Blood Urine Nitrite Urine Bilirubin Urine Urobilinogen Ur Leukocyte Esterase Urine RBC Urine WBC Ur Squamous Epith Cells Urine Bacteria SARS-CoV-2 (PCR) Influenza Type A (PCR) Influenza Type B (PCR) RSV (PCR) Imaging MR Brain: Attestation: I have reviewed the pertinent imaging results. Radiologist's impression: There are several scattered foci of diffusion restriction and T2 prolongation in the left frontal and parietal lobe watershed territories including the left postcentral gyrus, superior parietal lobule, bilateral frontal and parietal centrum semiovale and meneses radiata, head of left caudate nucleus, and left parietal occipital cortex watershed territories. No midline shift. No hydrocephalus. Multiple scattered foci of T2 prolongation in the supratentorial matter are nonspecific but likely represent chronic small-vessel ischemic changes. The pituitary gland, optic chiasm, and cerebellar tonsils are unremarkable. 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 No pathologic enhancement. Impression: 1. Multiple acute ischemic infarcts most prominent in the left parietal and occipital lobe watershed territories with additional scattered infarcts in the left head of the caudate nucleus, left frontal and parietal white matter. 2. No intracranial hemorrhage. No midline shift. Mild chronic small-vessel ischemic changes. 3. 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 4. No pathologic enhancement. Neck CTA: Attestation: I have reviewed the pertinent imaging results. Radiologist's impression: The origins of the great vessels from the aortic arch are patent. The origin of the right vertebral artery is patent. The origin of the left vertebral artery is patent. The common carotid arteries are patent There is plaque without stenosis at the origin of the right internal carotid artery by NASCET criteria. There is a critical (greater than 95%) stenosis at the origin of the left internal carotid artery by NASCET criteria. This is caused by a large amount of non-calcified plaque with a hairline residual lumen. The rest of the cervical segments of the internal carotid arteries are patent up to their intracranial segments. The intracranial segments of the internal carotid arteries demonstrate moderate to severe narrowing on the left. The left vertebral artery is dominant. The cervical segments of the vertebral arteries are patent. The intracranial segments of the vertebral arteries are patent. The middle cerebral arteries are normal without aneurysm or proximal occlusion identified. The anterior cerebral arteries are normal without aneurysm or proximal occlusion identified. The anterior communicating artery is well visualized and appears normal. The basilar artery is normal without aneurysm or occlusion. The posterior cerebral arteries are normal without aneurysm or proximal occlusion. There is normal opacification of major intracranial venous structures. The visualized lung apices are unremarkable The thyroid gland is unremarkable. The soft tissues of the neck are unremarkable. There are degenerative changes in the cervical spine. IMPRESSION: 1. No proximal intracranial large vessel occlusion. 2. Critical (greater than 95%) stenosis at the origin of the left internal carotid artery by NASCET criteria. This is caused by a large amount of non- calcified plaque with a hairline residual lumen. 3. Intracranial atherosclerosis with moderate to severe narrowing in the left supraclinoid internal carotid artery. Discharge Plan Discharge Disposition: Home, Self-Care Date of Admission: 01/05/25 20:59 Attending Provider on Discharge: Josefina Montilla Primary Care Provider: Jad Gallego Condition: Stable Anticipated Discharge Date/Time: 01/06/25 16:00 Discharge Medications: New clopidogrel 75 mg Tablet 75 mg PO DAILY Qty: 30 0RF aspirin 81 mg Tablet,Delayed Release (Dr/Ec) 81 mg PO DAILY Qty: 30 0RF rosuvastatin 40 mg tablet 40 mg PO DAILY Qty: 30 0RF Continued Skyrizi 360 mg/2.4 mL (150 mg/mL) wearable injector 360 mg subcut Patient Comments: [NO ORIGINAL SIG] omeprazole 40 mg capsule,delayed release(DR/EC) 40 mg PO BID Qty: 180 3RF methotrexate sodium 2.5 mg tablet 2.5 mg PO QWEEK Rx Instructions: 6 tabs weekly folic acid 1 mg tablet 1 mg PO DAILY zolpidem 10 mg tablet 10 mg PO QHS PRN (Reason: insomnia) Qty: 90 1RF alprazolam 0.5 mg tablet 0.5 mg PO QDAY PRN (Reason: anxiety) Qty: 30 1RF tadalafil 10 mg tablet 10 mg PO QDAY PRN (Reason: sexual activity) Qty: 6 5RF Discontinued prednisone 10 mg tablet 20 mg PO DAILY Discharge Orders: Discharge Order (Routine); Ordered 01/06/25 Ordered By: Josefina Montilla Patient Education: Aspirin (By mouth), Clopidogrel (By mouth), Rosuvastatin (By mouth), Stroke (DC) Additional Instructions: NEW MEDICATIONS: - ONGOING MANAGEMENT WITH PCP PLAVIX 75MG DAILY ASPIRIN 81MG DAILY (CHECK IN WITH GASTROENTEROLOGY FOR HOW LONG TO CONTINUE THIS) ROSUVASTATIN 40 MG DAILY NO DRIVING UNTIL CLEARED BY OPTHALMOLOGY/PCP/OT RECOMMEND OUTPATIENT SPEECH THERAPY YOU WILL NEED OUTPATIENT FOLLOW UP WITH VASCULAR SURGERY, NEUROLOGY, GASTRO ENTEROLOGY (call to move this up), PCP Activity Level: No Restrictions Discharge Diet: Heart Healthy (2 gm sodium, low fat) Follow Up Appointments: [facility] [Provider Group] - 01/09/25 8:40 am Referral Note: [facility] - Will call patient for appointment [facility] - Thursday @ 8:40am check in, 9am appointment. Address: [address] [place] [address], [id number] [facility] [Provider Group, Occupational Therapy] Referral Note: Clinic will call to make appointment. [facility] [Provider Group, Speech Therapy] Referral Note: Clinic will call to make appointment. Jad Gallego PA-C [Primary Care Provider, Family Practice] - 01/17/25 12:30 pm Referral Note: Bring discharge paperwork with you to appointment with Jad. Forms: [facility] Info Instructions
[2025-01-06 11:00] VITALS: BP 131/98; PULSE 55; RESP 20; TEMP 36.6; O2SAT 97
[2025-01-06 15:00] VITALS: BP 139/82; PULSE 51; PULSE 58; RESP 16; RESP 20; TEMP 36.7; O2SAT 95; O2SAT 97
--- NOTE | 2025-01-06 15:12 | PC.NURSE ---
End of Shift Note: Patient appears very stressed after receiving the new of having had a stroke today. He is worried about his work and driving. He is currently having an echo and depending on what the result of that is whether or not he will discharge home today with follow up or will need further intervention. Did notice he has trouble at times finding words. 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 His has been at bedside very supportive. Report has been given to Desi LINDSEY who will assume his care now.
[2025-01-06] MEDS: PERFLUTREN LIPID MICROSPHERES 2 ML VIAL IVP (15:21)
[2025-01-06] MEDS: ACETAMINOPHEN 325 MG TABLET 975 MG PO (16:30)
--- NOTE | 2025-01-06 18:09 | PC.NURSE ---
Discharge: Patient pleasant and cooperative, A&O. VSS, afebrile. Trouble with word finding this shift. IV removed with tip intact. Discharge instructions provided, all questions answered. D/C to home w/
== END 2025-01-06 17:00 | disposition home or self-care (01) | DRG 65 ==
LOC: ED 20:02 → MEDSURG 20:25
PROVIDERS: Admitting Provider Family Medicine; Emergency Provider Emergency Medicine; PCP Physician Assistant Medical; Visit Provider Family Medicine
DX: I63.232 Cerebral infarction due to unspecified occlusion or stenosis of left carotid arteries (principal); K50.90 Crohn's disease, unspecified, without complications; G47.00 Insomnia, unspecified; F41.9 Anxiety disorder, unspecified; R05.3 Chronic cough; D35.4 Benign neoplasm of pineal gland; Z79.899 Other long term (current) drug therapy; Z79.52 Long term (current) use of systemic steroids; Z87.891 Personal history of nicotine dependence; M19.90 Unspecified osteoarthritis, unspecified site; Z90.49 Acquired absence of other specified parts of digestive tract; R29.702 NIHSS score 2; Z79.631 Long term (current) use of antimetabolite agent; Z79.620 Long term (current) use of immunosuppressive biologic
CPT/HCPCS: 36415; 70450; 70496; 70498; 70553; 71046; 80053; 80061; 81001; 82140; 82803; 82962; 83036; 83605; 83735; 84484; 85025; 85610; 86140; 87040; 87631; 92523; 93005; 93306; 97161; 97165; 97535; 99285; 99291; A9270; A9575; J1885; J7030; Q9957; Q9967